=== PATIENT | male | born 1945 | race Caucasian/White ===

== ENCOUNTER 2017-05-23 06:40 | Day surgery (SDC) | payer MEDICARE ==
[~2017-05-23] VITALS: Ht 175.3 cm; Wt 121.6 kg
[2017-05-23 07:23] LABS: HEMATOCRIT 42.2 % (42.0-54.0); HEMOGLOBIN 14.4 g/dL (13.5-17.5); MCH 30.5 pg (26.0-34.0); MCHC 34.1 g/dL (31.0-37.0); MCV 89.4 fL (80.0-100.0); MEAN PLATELET VOLUME 10.7 fL (7.4-10.4); RBC 4.72 10x6/uL (4.20-6.10); RDW 14.8 % (11.5-14.5); WBC 9.5 10x3/uL (4.8-10.8)
[2017-05-23] MEDS ORDERED: ZOCOR40 MG PO (08:32)
[2017-05-23] MEDS ORDERED: TESTOSTERON200 MG/ML IM (08:33)
[2017-05-23] MEDS ORDERED: TERAZOSIN HCL2 MG PO (08:34)
[2017-05-23] MEDS ORDERED: PROZAC40 MG PO (08:34)
[2017-05-23] MEDS ORDERED: LISINOPRIL-HCTZ1 T13 PO (08:34)
[2017-05-23 08:45] VITALS: BP 97/62; Ht 175.3 cm; Wt 121.6 kg
--- NOTE | 2017-05-23 11:30 | NUR ---
RECEIVED PT FROM [facility], NO C/O VOICED.
--- NOTE | 2017-05-23 15:19 | NUR ---
1330--IV DC'D, PT UP TO DRESS. RUBÉN RUIZ 1340--DISCHARGE INSTRUCTIONS GIVEN, PT VERBALIZES UNDERSTANDING. PT OFF UNIT VIA WC. RUBÉN RUIZ
--- NOTE | 2017-05-26 15:54 | OP ---
PATIENT NAME: ANA LAURA MALAVE MEDICAL RECORD: [id number] :[birth year] LOCATION:[facility] ADMISSION DATE: SURGEON: FRANK HERNANDEZ MD DATE OF OPERATION: 05/23/2017 PREOPERATIVE DIAGNOSIS: Right vocal cord lesion and hoarseness. POSTOPERATIVE DIAGNOSIS: Right vocal cord lesion and hoarseness. PROCEDURE: Microsuspension laryngoscopy and biopsy of the right true vocal cord. SURGEON: Frank Hernandez MD ANESTHESIA: General orotracheal. BLOOD LOSS: Less than 1 cc. SPECIMENS: Multiple biopsies from the right true vocal cord. COMPLICATIONS: None. DISPOSITION: Recovery stable. DESCRIPTION OF PROCEDURE: He was brought to the operating room and placed in supine position, sedated and intubated by anesthesia with a 6-1/2 ET tube. Table was turned 90 degrees. A head drape was applied and he was positioned for laryngoscopy. He did not have any upper teeth, but a plastic tooth guard was used to protect the alveolus. Endotracheal tube was removed to the left side of the mouth. A Kleinsasser J laryngoscope was used to examine the hypopharynx, larynx, lateral pharyngeal lund, vallecula, base of tongue, both piriforms, post-cricoid area and the supraglottic larynx. No lesions were identified. He was then brought in to expose the larynx and the right vocal cord lesion was easily visualized and it was exophytic, very pale, white on the medial surface of the entire true vocal cord from the anterior commissure all the way back to the vocal process to the arytenoid upon to the medial arytenoid and in to the false cord posteriorly. Along the mid cord, especially it was a very thick, white and hyperkeratotic in appearance. The laryngoscope was placed for good visualization and the Lewy retractor was attached to suspend them and then the microscope was brought in to get good visualization. Upbiting 2-mm cup forceps were used to start with some biopsies along the length of the cord. There was so much thick, hyperkeratotic material. I want to make sure and get some good biopsies up to the edge of the mucosa to make sure it would show if there was some invasive carcinoma and allow this thickened material stripped off the medial aspect of the mid cord to get that accomplished. There was really no significant bleeding. There was plenty of path specimen. The laryngoscope was let down and removed. The plastic tooth guard was removed. He was awakened, extubated, and transported to recovery in good condition. No complications. TRANSINT:[id number] Voice Confirmation ID: [id number] DOCUMENT ID: [id number] OPERATIVE REPORT [id number] ANA LAURA MALAVE ERIC MD at 1554 CC: [id number] DICTATION DATE: 05/23/17 1336 CUT OFF TENDER GLASS: 05/23/177 [facility] 05/23/17 [id number] [place] [address]
--- NOTE | 2017-05-26 15:54 | HP ---
PATIENT: ANA LAURA MALAVE MEDICAL RECORD: [id number] ACCOUNT: [id number] LOCATION:[facility] : [birth year] ADMISSION DATE: 05/23/17 HISTORY AND PHYSICAL EXAMINATION Preoperative History and Physical HISTORY OF PRESENT ILLNESS: Ana Laura is a 71-year-old male, smoker with hoarseness and a right vocal cord lesion. He is being admitted for laryngoscopy and biopsy of the right vocal cord. PAST MEDICAL HISTORY: Hypertension. PAST SURGICAL HISTORY: None. CURRENT MEDICATIONS: Simvastatin, terazosin, lisinopril, and fluoxetine. ALLERGIES: No known drug allergies. PHYSICAL EXAMINATION: GENERAL: He is healthy-appearing, but has a hoarse voice. FACE: Normal, symmetric, no lesions. EYES: Sclerae and conjunctivae are normal. EARS: Canals and TMs are normal. NOSE: No masses, polyps, or drainage. ORAL CAVITY AND OROPHARYNX: Tongue protrudes to midline. Pharynx is normal. NECK: No masses, no adenopathy. CHEST: Clear. CARDIOVASCULAR: Regular rate and rhythm, no murmur. EXTREMITIES: Normal. Flexible laryngoscopy reveals normal cord mobility, but he has an exophytic lesion involving the entire right cord from the anterior commissure all the way to the vocal process of the arytenoid and up onto the false cord posteriorly as well. IMPRESSION: Hoarseness and right vocal cord lesion. PLAN: Microsuspension laryngoscopy and biopsy of the right true cord lesion. TRANSINT:[id number] Voice Confirmation ID: [id number] DOCUMENT ID: [id number] JAVED VALDEZ MD at 1554 CC: [id number] DICTATION DATE: 05/22/17 1315 MANAGER OF CHANGE: 05/22/17 1339 [facility] 05/23/17 [place] [address]
== END 2017-05-23 13:40 | disposition home or self-care (01) ==
LOC: D.OPS 06:40 → D.PAN 09:00 → D.OPS 09:00 → D.PAN 09:15 → D.OPS 09:20
PROVIDERS: Anesthesiology
DX: J38.3 Other diseases of vocal cords (principal); R49.0 Dysphonia; F17.200 Nicotine dependence, unspecified, uncomplicated; Z01.812 Encounter for preprocedural laboratory examination

== ENCOUNTER → 2017-05-23 06:40 | Day surgery (SDC) | payer MEDICARE ==
[~2017-05-23 06:40] MED LIST: FLOMAX0.4 MG PO; LISINOPRIL-HCTZ1 T13 PO; MIRALAX17 GM PO; PROSCAR5 MG PO; PROZAC40 MG PO; REVATIO20 MG PO; TERAZOSIN HCL2 MG PO; TESTOSTERON200 MG/ML IM; ZOCOR40 MG PO
== END | disposition home or self-care (01) ==
LOC: D.OPS 06:40
DX: J38.3 Other diseases of vocal cords (principal); R49.0 Dysphonia; F17.200 Nicotine dependence, unspecified, uncomplicated; Z01.812 Encounter for preprocedural laboratory examination; R33.9 Retention of urine, unspecified

== ENCOUNTER 2017-05-23 20:01 | Emergency (ER) | payer MEDICARE ==
[2017-05-23 08:45] VITALS: BMI 39.6
[~2017-05-23 20:01] MED LIST changes: -FLOMAX0.4 MG PO; -MIRALAX17 GM PO; -PROSCAR5 MG PO; -REVATIO20 MG PO
[2017-05-23 20:51] LABS: APPEARANCE CLEAR (CLEAR); BILIRUBIN NEGATIVE (NEGATIVE); COLOR YELLOW (YELLOW); GLUCOSE NEGATIVE (NEGATIVE); KETONE NEGATIVE (NEGATIVE); LEUKOCYTE ESTERASE NEGATIVE (NEGATIVE); NITRITE NEGATIVE (NEGATIVE); PROTEIN NEGATIVE (NEGATIVE); UROBILINOGEN NORMAL (NORMAL)
== END 2017-05-23 21:40 | disposition home or self-care (01) ==
LOC: D.ER 20:01
PROVIDERS: Emergency Medicine
DX: R33.9 Retention of urine, unspecified (principal); I10 Essential (primary) hypertension

== ENCOUNTER 2017-05-24 12:39 | Emergency (ER) | payer MEDICARE ==
[2017-05-23 08:45] VITALS: BMI 39.6
== END 2017-05-24 15:30 | disposition home or self-care (01) ==
LOC: D.ER 12:39
DX: N40.0 Benign prostatic hyperplasia without lower urinary tract symptoms (principal); I10 Essential (primary) hypertension; F17.200 Nicotine dependence, unspecified, uncomplicated; N48.89 Other specified disorders of penis; R30.0 Dysuria; R31.9 Hematuria, unspecified

== ENCOUNTER → 2017-07-02 21:09 | Outpatient (CLI) | payer MEDICARE ==
[~2017-07-02 21:09] MED LIST changes: +FLOMAX0.4 MG PO; +MIRALAX17 GM PO; +PROSCAR5 MG PO; +REVATIO20 MG PO
== END | disposition home or self-care (01) ==
LOC: D.LABREF 21:09
DX: R31.9 Hematuria, unspecified (principal)

== ENCOUNTER → 2017-07-08 12:39 | Outpatient (CLI) | payer MEDICARE | END | disposition home or self-care (01) | LOC: D.CT 12:39 | DX: R33.9 Retention of urine, unspecified (principal) ==

== ENCOUNTER 2017-07-28 08:00 | Outpatient (CLI) | payer MEDICARE ==
[~2017-07-28 08:00] MED LIST changes: -FLOMAX0.4 MG PO; -MIRALAX17 GM PO; -PROSCAR5 MG PO; -REVATIO20 MG PO
[2017-07-28] MEDS ORDERED: FLOMAX0.4 MG PO (13:44)
[2017-07-28] MEDS ORDERED: PROSCAR5 MG PO (13:44)
[2017-07-28] MEDS ORDERED: REVATIO20 MG PO (13:46)
[2017-07-28] MEDS ORDERED: MIRALAX17 GM PO (13:46)
[2017-07-28 14:27] LABS: HEMATOCRIT 47.8 % (42.0-54.0); MCH 30.3 pg (26.0-34.0); MCHC 33.5 g/dL (31.0-37.0); MCV 90.5 fL (80.0-100.0); MEAN PLATELET VOLUME 11.4 fL (7.4-10.4); RBC 5.28 10x6/uL (4.20-6.10); WBC 9.4 10x3/uL (4.8-10.8)
[2017-07-28 14:41] LABS: CALC OSMOLALITY 276 mosm/kg (275-300); CALCIUM 10.2 mg/dL (8.5-10.1); CARBON DIOXIDE 29.4 mmol/L (21.0-32.0); CHLORIDE - SERUM 100 mmol/L (98-107); CREATININE - SERUM 0.9 mg/dL (0.6-1.3); GLUCOSE 119 mg/dL (74-106); POTASSIUM - SERUM 3.8 mmol/L (3.5-5.1); SODIUM 138 mmol/L (136-145); UREA NITROGEN 12 mg/dL (7-18); eGFR NON AFRICAN AMERICAN 89 mL/min (90-120)
--- NOTE | 2017-07-28 14:48 | NUR ---
PATRICIA APPT: DR. EUBANKS REVIEWED EKG & EXPLAINED TO PATIENT CARDIAC CLEARANCE NEEDED PRIOR TO PROCEDURE. FRANCISCO AT DR. BRAVO'S OFFICE NOTIFIED. DR. WHITAKER'S OFFICE TO ARRANGE REFERRAL, EKGS FAXED TO OFFICE. PATIENT INFORMED TO NOTIFIY DR. BRAVO'S OFFICE WHEN CLEARANCE OBTAINED, STATES UNDERSTANDING.
== END 2017-07-28 23:59 | disposition home or self-care (01) ==
LOC: D.OPS 08:00 → D.PAN 07-29 07:30 → EDSTATUS 07-29 12:00 → D.PAN 07-29 12:00 → D.OPS 07-29 12:00
PROVIDERS: Anesthesiology
DX: Z53.9 Procedure and treatment not carried out, unspecified reason (principal)

== ENCOUNTER 2018-08-03 05:41 | Inpatient (IN) | payer MEDICARE ==
[~2018-08-03] VITALS: Ht 175.3 cm; Wt 121.8 kg
[2018-08-03] VITALS (16 sets, daily range): BP systolic 120–156; BP diastolic 50–102; BMI 44.4
--- NOTE | ~2018-08-03 | MORECARE ---
CASE MANAGEMENT DISCHARGE SUMMARY PATIENT: ANA LAURA MALAVE UNIT: [id number] ADM DATE: 08/03/18 AGE: 72 : [birth year] SEX: M ROOM/BED: D.2137 AUTHOR: ANGELA GARCIA PHYSICIAN: REFERRING PHYSICIAN: RICARDO LOCO MD DATE OF SERVICE: 08/05/18 Discharge Plan Patient Name: ANA LAURA MALAVE [facility] : 1945 Planned Disposition: Home Anticipated Discharge Date: 08/08/18 Discharge Date: Expected LOS: 5 Initial Reviewer: [email or web address] Initial Review Date: 08/05/2018 Generated: 08/05/18 10:28 am DCPIA - Discharge Planning Initial Assessment Updated by [email or web address]: Ana Landa on 08/05/18 9:24 am * Is the patient Alert and Oriented? Yes * How many steps to enter\exit or inside your home? * PCP DR. WHITAKER * Pharmacy [facility] * Preadmission Environment Home with Family * ADLs Independent * Equipment Bedside Commode Shower Chair Walker Wheelchair * List name and contact numbers for known caregivers / representatives who currently or will assist patient after discharge: RACH (SON) * Verbal permission to speak to the caregivers and representatives has been obtained from the patient. Yes * Community resources currently utilized None * Additional services required to return to the preadmission environment? Yes * Can the patient safely return to the preadmission environment? Yes * Has this patient been hospitalized within the prior 30 days at any hospital? No Last DP export: 08/05/18 8:21 a Patient Name: ANA LAURA MALAVE Page [phone] at 0928 All edits/amendments must be made on the electronic document DICTATION DATE: 08/05/18927 AUDIO VIDEO TECH: DUGLAS 08/05/18927 RPT#: [id number] DC DATE: STATUS: ADM IN [facility] [address] [place] [address] END OF REPORT
--- NOTE | ~2018-08-03 | MORECARE ---
CASE MANAGEMENT DISCHARGE SUMMARY PATIENT: ANA LAURA MALAVE UNIT: [id number] ADM DATE: 08/03/18 AGE: 72 : [birth year] SEX: M ROOM/BED: D.2137 AUTHOR: ANGELA GARCIA PHYSICIAN: REFERRING PHYSICIAN: RICARDO LOCO MD DATE OF SERVICE: 08/05/18 Discharge Plan Patient Name: ANA LAURA MALAVE Facility: [facility]:[place] : 1945 Planned Disposition: Home Anticipated Discharge Date: 08/08/18 Discharge Date: Expected LOS: 5 Initial Reviewer: [email or web address] Initial Review Date: 08/05/2018 Generated: 08/05/18 10:21 am Patient Name: ANA LAURA MALAVE Page [phone] at 0921 All edits/amendments must be made on the electronic document DICTATION DATE: 08/05/18919 [employer] PROJECT MANAGER: DUGLAS 08/05/18919 RPT#: [id number] DC DATE: STATUS: ADM IN [facility] [address] [place] [address] END OF REPORT
--- NOTE | ~2018-08-03 | MORECARE ---
CASE MANAGEMENT DISCHARGE SUMMARY PATIENT: ANA LAURA MALAVE UNIT: [id number] ADM DATE: 08/03/18 AGE: 72 : [birth year] SEX: M ROOM/BED: D.7725 AUTHOR: JOSE,DOC PHYSICIAN: REFERRING PHYSICIAN: RICARDO LOCO MD DATE OF SERVICE: 08/06/18 Discharge Plan Patient Name: ANA LAURA MALAVE Facility: [facility]:[place] : 1945 Planned Disposition: Home Anticipated Discharge Date: 08/07/18 Discharge Date: Expected LOS: 4 Initial Reviewer: [email or web address] Initial Review Date: 08/05/2018 Generated: 08/06/18 5:39 pm Comments DCP- Discharge Planning Updated by [email or web address]: Kike Serrato on 08/06/18 3:[address] Patient Name: ANA LAURA MALAVE Encounter No: [id number] : 1945 Primary Insurance: MEDICARE A & B Anticipated DC Date: 08-07-2018 Planned Disposition: Home DCP follow-up note: CM RECEIVED ORDER FOR OXYGEN TESTING AND NEBULIZER ARRANGEMENT. CM SPOKE TO REPIRATORY THERAPY WHO INFORMED CM THAT PT IS 92% OXYGEN ON ROOM AIR AT REST, 94% OXYGEN ON ROOM AIR DURING EXERTION. CM SPOKE TO DR. VIERA WHO INFORMED CM THAT PT WILL BE DISCHARGED ON DUONEB WITH NEBULIZER. CM SPOKE TO PT IN ROOM, DISCUSSED ORDER ALONG WITH DISCHARGE PLANNING AND NEEDS. CM DISCUSSED AVAILABILITY OF MEDICAL EQUIPMENT, HOME HEALTH AND REHAB SERVICES. PT DENIES NEED OF HOME HEALTH OR REHAB SERVICES, REPORTS NEEDING NEBULIZER. PT WOULD LIKE MAIL ORDER FOR MEDICATIONS IF POSSIBLE IF IT WILL SAVE MONEY. PT UNDERSTANDS HE WILL NEED AT LEAST THREE DAYS SUPPLY OF DUONEB FROM PHARMACY TO ALLOW TIME FOR MAIL ORDER DELIVERY. PT DOES HAVE STAND ALONE [facility] PRESCR[facility] DRUG COVERAGE POLICY IF NEEDED. PT HAS MEDICARE A AND B. PT HAS NO PREFERNECE ON PROVIDER, REPORTS HE WILL DISCHARGE HOME. IMPORTANT MESSAGE FROM MEDICARE PROVIDED AND EXPLAINED. CM CALLED [facility], , SPOKE TO ELINA AND PROVIDED REFERRAL FOR NEBULIZER AND ASKED FOR HOME DELIVERY OF DUONEB. CM FAXED REFERRAL TO [facility] AT [phone]. [facility] TO [facility]RANGE HOSPITAL DELIVERY OF NEBULIZER AT HOSPITAL ROOM 08-07-18 AND WILL MAIL ORDER DUONEB FOR HOME DELIVERY. PT WILL NEED TO PRESCRIPTION FOR AT LEAST THREE DAYS OF DUONEB CALLED IN TO HIS PHARMACY TO ALLOW TIME FOR MAIL ORDER DUONEB TO ARRIVE AT HIS HOME. CM TO CONTINUE TO FOLLOW AND ASSIST NEEDED. Kike Serrato, CASE MANAGEMENT DCP- Discharge Planning Updated by [id number]: Ana Landa on 08/05/18 8:[address] Patient Name: ANA LAURA MALAVE Admission Status: ER Accout number: [id number] Admission Date: 08-03-2018 : 1945 Admission Diagnosis: Attending: RICARDO LOCO Current LOS: 2 Anticipated DC Date: 08-08-2018 Planned Disposition: Home Primary Insurance: MEDICARE A & B Discharge Planning Comments: CM MET WITH PATIENT REGARDING D/C NEEDS AND PLANS. PATIENT STATED HE HAS STEPS TO ENTER HOME AND NO STAIRS INSIDE. PATIENTS SON (RACH) WILL DRIVE HIM HOME AT DISCHARGE. PATIENT STATED HE IS INDEPENDENT WITH HIS CARE AND HAS A WALKER, WHEELCHAIR, BS COMMODE, AND SHOWER CHAIR AT HOME. PATIENT STATED HIS PCP IS DR. ROMO AND USES [facility]. PATIENT WAS CARING FOR HIS AT HOME (SHE IS ON HOSPICE) BUT WHEN HE BECAME SICK SHE [facility]ENT [facility] WHILE HE IS HERE. PATIENT REFUSED HOME HEALTH AND STATED IF HE DECIDES HE NEEDS IT HE WILL NOTIFY HIS DOCTOR. CM WILL CONTINUE TO FOLLOW PATIENT WITH D/C NEEDS AND PLANS. PCP DR. ROMO [facility] RACH (SON) Cloth Shearing Supervisor: Ana Landa DCPIA - Discharge Planning Initial Assessment Updated by [email or web address]: Ana Landa on 08/05/18 9:24 am * Is the patient Alert and Oriented? Yes * How many steps to enter\exit or inside your home? * PCP DR. WHITAKER * Pharmacy [facility] * Preadmission Environment Home with Family * ADLs Independent * Equipment Bedside Commode Shower Chair Walker Wheelchair * List name and contact numbers for known caregivers / representatives who currently or will assist patient after discharge: RACH (SON) * Verbal permission to speak to the caregivers and representatives has been obtained from the patient. Yes * Community resources currently utilized None * Additional services required to return to the preadmission environment? Yes * Can the patient safely return to the preadmission environment? Yes * Has this patient been hospitalized within the prior 30 days at any hospital? No Coverage Notice Reviewer: [email or web address] Marcio Serrato Notice Issued Date-Time: 08/06/2018 15:55 Notice Type: IM Discharge Notice Notice Delivered To: Patient Relationship to Patient: Public Health Sanitarian Name: Delivery Method: HAND - Hand Delivered [place] Days: Prior Verbal Notification: Recipient Understood Notice: Yes Recipient Signature: Yes Med Rec Note Co-signed by Attending: Coverage Notice Comment: Last DP export: 08/06/18 3:21 p Patient Name: ANA LAURA MALAVE Page [phone] at 1639 All edits/amendments must be made on the electronic document DICTATION DATE: 08/06/181638 HOSPITALITY WORKERS: DUGLAS 08/06/18 1639 RPT#: [id number] DC DATE: STATUS: ADM IN [facility] [address] [place] [address] END OF REPORT
--- NOTE | ~2018-08-03 | EC ---
PATIENT:ANA LAURA MALAVE DATE OF SERVICE: 08/03/18 SEX: M MEDICAL RECORD: [id number] DATE OF : [birth year] LOCATION:D.M2 D.213 AGE OF PATIENT: 72 ADMISSION DATE: 08/03/18 REFERRING PHYSICIAN: INTERPRETING PHYSICIAN: ANGEL BENITEZ MD ECHOCARDIOGRAM REPORT ECHO CHARGES 4 ECHO COMPLETE Date: 08/03/18 CLINICAL DIAGNOSIS: CHF ECHOCARDIOGRAPHIC MEASUREMENTS (adult normal given) AC root (d.<3.7cm) 4.2 cm LV Septum d (<1.2 cm> 1.5 cm Valve Excursion 1.3 cm LV Septum (systole) 2.0 cm Left Atria (s.<4.0cm> 4.6 cm LVPW d(<1.2cm) 1.5 cm RV (d.<2.3cm) 2.6 cm LVPW (sytole) 2.0 cm LV diastole(<5.6CM) 7.5 cm MV E-F(>70mm/sec) cm LV systole 5.8 cm LVOT Diameter 2.2 cm MV exc.(>10mm) cm Est.ejection fraction (50-75%) % DOPPLER: LVIT cm/sec A 166 cm/sec E 100 cm/sec LA cm/sec RVSP 24.0 mmHg LVOT 125 cm/sec AOP1/2T m/s Asc. Ao 187 cm/sec RVOT 64.0 cm/sec RA cm/sec PA 56.0 cm/sec AV Gradient Peak 14.0 mmHg AV Mean 6.5 mmHg AV Area 2.8 cm MV Gradient Peak 13.4 mmHg MV Mean 4.9 mmHg MV Area cm COMMENTS: Western F[employer] Hat Blocker: Bong BHATT Child Development Specialist: 1 Dr. Benitez TAPE# PACS Pericardial Effusion N DATE OF SERVICE: 08/03/2018 FINDINGS: 1. Left ventricular chamber size is mildly dilated. Left ventricular systolic function is preserved at 55%. 2. Left atrium is enlarged at 4.6 cm. Right atrium and right ventricle chamber sizes are as well xknw-ao-wvazylxzes dilated. 3. Valvular structures have normal structure and motion. 4. Doppler interrogation reveals no significant valvular insufficiency or stenosis. Pulmonary systolic pressure is normal, estimated at 24 mmHg. ECHOCARDIOGRAM REPORT [id number] ANA LAURA MALAVE 5. No evidence of pericardial effusion or left ventricular thrombus. TRANSINT:[id number] Voice Confirmation ID: [id number] DOCUMENT ID: [id number] ANGEL BENITEZ MD at 1059 CC: [id number] DICTATION DATE: 08/03/18 1255 IT TEACHER: 08/03/18 1524 ADM IN [facility] [address] [place] [address]
--- NOTE | ~2018-08-03 | MORECARE ---
CASE MANAGEMENT DISCHARGE SUMMARY PATIENT: ANA LAURA MALAVE UNIT: [id number] ADM DATE: 08/03/18 AGE: 72 : [birth year] SEX: M ROOM/BED: D.2132 AUTHOR: ANGELA GARCIA PHYSICIAN: REFERRING PHYSICIAN: RICARDO LOCO MD DATE OF SERVICE: 08/05/18 Discharge Plan Patient Name: ANA LAURA MALAVE Facility: [facility]:[place] : 1945 Planned Disposition: Home Anticipated Discharge Date: 08/08/18 Discharge Date: Expected LOS: 5 Initial Reviewer: [email or web address] Initial Review Date: 08/05/2018 Generated: 08/05/18 10:35 am Comments DCP- Discharge Planning Updated by [id number]: Ana Landa on 08/05/18 8:[address] Patient Name: ANA LAURA MALAVE Admission Status: ER Accout number: [id number] Admission Date: 08-03-2018 : 1945 Admission Diagnosis: Attending: RICARDO LOCO Current LOS: 2 Anticipated DC Date: 08-08-2018 Planned Disposition: Home Primary Insurance: MEDICARE A & B Discharge Planning Comments: CM MET WITH PATIENT REGARDING D/C NEEDS AND PLANS. PATIENT STATED HE HAS STEPS TO ENTER HOME AND NO STAIRS INSIDE. PATIENTS SON (RACH) WILL DRIVE HIM HOME AT DISCHARGE. PATIENT STATED HE IS INDEPENDENT WITH HIS CARE AND HAS A WALKER, WHEELCHAIR, BS COMMODE, AND SHOWER CHAIR AT HOME. PATIENT STATED HIS PCP IS DR. ROMO AND USES [facility]. PATIENT WAS CARING FOR HIS AT HOME (SHE IS ON HOSPICE) BUT WHEN HE BECAME SICK [facility] WHILE HE IS HERE. PATIENT REFUSED HOME HEALTH AND STATED IF HE DECIDES HE NEEDS IT HE WILL NOTIFY HIS DOCTOR. CM WILL CONTINUE TO FOLLOW PATIENT WITH D/C NEEDS AND PLANS. PCP DR. ROMO [facility] RACH (SON) Cook'S Assistant: Ana Landa DCPIA - Discharge Planning Initial Assessment Updated by [email or web address]: Ana Landa on 08/05/18 9:24 am * Is the patient Alert and Oriented? Yes * How many steps to enter\exit or inside your home? * PCP DR. WHITAKER * [facility]acy [facility] * Preadmission Environment Home with Family * ADLs Independent * Equipment Bedside Commode Shower Chair Walker Wheelchair * List name and contact numbers for known caregivers / representatives who currently or will assist patient after discharge: RACH (SON) * Verbal permission to speak to the caregivers and representatives has been obtained from the patient. Yes * Community resources currently utilized None * Additional services required to return to the preadmission environment? Yes * Can the patient safely return to the preadmission environment? Yes * Has this patient been hospitalized within the prior 30 days at any hospital? No Last DP export: 08/05/18 8:28 a Patient Name: ANA LAURA MALAVE Page [phone] at 0935 All edits/amendments must be made on the electronic document DICTATION DATE: 08/05/18934 GRADUATE FELLOW: DUGLAS 08/05/18934 RPT#: [id number] DC DATE: STATUS: ADM IN [facility] [address] [place] [address] END OF REPORT
--- NOTE | ~2018-08-03 | MORECARE ---
CASE MANAGEMENT DISCHARGE SUMMARY PATIENT: AN ALAURA MALAVE UNIT: [id number] ADM DATE: 08/03/18 AGE: 72 : [birth year] SEX: M ROOM/BED: D.3668 AUTHOR: JOSE,DOC PHYSICIAN: REFERRING PHYSICIAN: RICARDO LOCO MD DATE OF SERVICE: 08/07/18 Discharge Plan Patient Name: ANA LAURA MALAVE Facility: [facility]:[place] : 1945 Planned Disposition: Home Anticipated Discharge Date: 08/07/18 Discharge Date: Expected LOS: 4 Initial Reviewer: [email or web address] Initial Review Date: 08/05/2018 Generated: 08/07/18 1:19 pm Comments DCP- Discharge Planning Updated by [email or web address]: Kike Serrato on 08/06/18 3:[address] Patient Name: ANA LAUAR MALAVE Encounter No: [id number] : 1945 Primary Insurance: MEDICARE A & B Anticipated DC Date: 08-07-2018 Planned Disposition: Home DCP follow-up note: CM RECEIVED ORDER FOR OXYGEN TESTING AND NEBULIZER ARRANGEMENT. CM SPOKE TO REPIRATORY THERAPY WHO INFORMED CM THAT PT IS 92% OXYGEN ON ROOM AIR AT REST, 94% OXYGEN ON ROOM AIR DURING EXERTION. CM SPOKE TO DR. VIERA WHO INFORMED CM THAT PT WILL BE DISCHARGED ON DUONEB WITH NEBULIZER. CM SPOKE TO PT IN ROOM, DISCUSSED ORDER ALONG WITH DISCHARGE PLANNING AND NEEDS. CM DISCUSSED AVAILABILITY OF MEDICAL EQUIPMENT, HOME HEALTH AND REHAB SERVICES. PT DENIES NEED OF HOME HEALTH OR REHAB SERVICES, REPORTS NEEDING NEBULIZER. PT WOULD LIKE MAIL ORDER FOR MEDICATIONS IF POSSIBLE IF IT WILL SAVE MONEY. PT UNDERSTANDS HE WILL NEED AT LEAST THREE DAYS SUPPLY OF DUONEB FROM PHARMACY TO ALLOW TIME FOR MAIL ORDER DELIVERY. PT DOES HAVE STAND ALONE [facility] PRESCRITION DRUG COVERAGE POLICY IF NEEDED. PT HAS MEDICARE A AND B. PT HAS NO PREFERNECE ON PROVIDER, REPORTS HE WILL DISCHARGE HOME. IMPORTANT MESSAGE FROM MEDICARE PROVIDED AND EXPLAINED. CM CALLED [facility], , SPOKE TO ELINA AND PROVIDED REFERRAL FOR NEBULIZER AND ASKED FOR HOME DELIVERY OF DUONEB. CM FAXED REFERRAL TO [facility] AT [phone]. [facility] TO [facility]RANGE HOSPITAL DELIVERY OF NEBULIZER AT HOSPITAL ROOM 08-07-18 AND WILL MAIL ORDER DUONEB FOR HOME DELIVERY. PT WILL NEED TO PRESCRIPTION FOR AT LEAST THREE DAYS OF DUONEB CALLED IN TO HIS PHARMACY TO ALLOW TIME FOR MAIL ORDER DUONEB TO ARRIVE AT HIS HOME. CM TO CONTINUE TO FOLLOW AND ASSIST NEEDED. Kike Serrato, CASE MANAGEMENT DCP- Discharge Planning Updated by [email or web address]: Ana Landa on 08/05/18 8:[address] Patient Name: ANA LAURA MALAVE Admission Status: ER Accout number: [id number] Admission Date: 08-03-2018 : 1945 Admission Diagnosis: Attending: RICARDO LOCO Current LOS: 2 Anticipated DC Date: 08-08-2018 Planned Disposition: Home Primary Insurance: MEDICARE A & B Discharge Planning Comments: CM MET WITH PATIENT REGARDING D/C NEEDS AND PLANS. PATIENT STATED HE HAS STEPS TO ENTER HOME AND NO STAIRS INSIDE. PATIENTS SON (RACH) WILL DRIVE HIM HOME AT DISCHARGE. PATIENT STATED HE IS INDEPENDENT WITH HIS CARE AND HAS A WALKER, WHEELCHAIR, BS COMMODE, AND SHOWER CHAIR AT HOME. PATIENT STATED HIS PCP IS DR. ROMO AND USES [facility]. PATIENT WAS CARING FOR HIS AT HOME (SHE IS ON HOSPICE) BUT WHEN HE BECAME SICK [facility] WHILE HE IS HERE. PATIENT REFUSED HOME HEALTH AND STATED IF HE DECIDES HE NEEDS IT HE WILL NOTIFY HIS DOCTOR. CM WILL CONTINUE TO FOLLOW PATIENT WITH D/C NEEDS AND PLANS. PCP DR. ROMO [facility] RACH (SON) Cylinder Press Feeder: Ana Landa DCPIA - Discharge Planning Initial Assessment Updated by [email or web address]: Ana Landa on 08/05/18 9:24 am * Is the patient Alert and Oriented? Yes * How many steps to enter\exit or inside your home? * PCP DR. WHITAKER * Pharmacy [facility] * Preadmission Environment Home with Family * ADLs Independent * Equipment Bedside Commode Shower Chair Walker Wheelchair * List name and contact numbers for known caregivers / representatives who currently or will assist patient after discharge: RACH (SON) * Verbal permission to speak to the caregivers and representatives has been obtained from the patient. Yes * Community resources currently utilized None * Additional services required to return to the preadmission environment? Yes * Can the patient safely return to the preadmission environment? Yes * Has this patient been hospitalized within the prior 30 days at any hospital? No Coverage Notice Reviewer: [email or web address] Marcio Serrato Notice Issued Date-Time: 08/06/2018 15:55 Notice Type: IM Discharge Notice Notice Delivered To: Patient Relationship to Patient: Store Mgr Name: Delivery Method: HAND - Hand Delivered [place] Days: Prior Verbal Notification: Recipient Understood Notice: Yes Recipient Signature: Yes Med Rec Note Co-signed by Attending: Coverage Notice Comment: Last DP export: 08/07/18 11:11 a Patient Name: ANA LAURA MALAVE Page [phone] at 1219 All edits/amendments must be made on the electronic document DICTATION DATE: 08/07/181218 ASSISTANT CHIEF TRAIN DISPATCHER: DUGLAS 08/07/18 1219 RPT#: [id number] DC DATE: STATUS: ADM IN [facility] [address] [place] [address] END OF REPORT
--- NOTE | ~2018-08-03 | MORECARE ---
CASE MANAGEMENT DISCHARGE SUMMARY PATIENT: ANA LAURA MALAVE UNIT: [id number] ADM DATE: 08/03/18 AGE: 72 : [birth year] SEX: M ROOM/BED: D.2133 AUTHOR: ANGELA GARCIA PHYSICIAN: REFERRING PHYSICIAN: RICARDO LOCO MD DATE OF SERVICE: 08/06/18 Discharge Plan Patient Name: ANA LAURA MALAVE Facility: [facility]:[place] : 1945 Planned Disposition: Home Anticipated Discharge Date: 08/07/18 Discharge Date: Expected LOS: 4 Initial Reviewer: [id number] Initial Review Date: 08/05/2018 Generated: 08/06/18 5:21 pm Comments DCP- Discharge Planning Updated by [email or web address]: Ana Landa on 08/05/18 8:[address] Patient Name: ANA LAURA MALAVE Admission Status: ER Accout number: [id number] Admission Date: 08-03-2018 : 1945 Admission Diagnosis: Attending: RICARDO LOCO Current LOS: 2 Anticipated DC Date: 08-08-2018 Planned Disposition: Home Primary Insurance: MEDICARE A & B Discharge Planning Comments: CM MET WITH PATIENT REGARDING D/C NEEDS AND PLANS. PATIENT STATED HE HAS STEPS TO ENTER HOME AND NO STAIRS INSIDE. PATIENTS SON (RACH) WILL DRIVE HIM HOME AT DISCHARGE. PATIENT STATED HE IS INDEPENDENT WITH HIS CARE AND HAS A WALKER, WHEELCHAIR, BS COMMODE, AND SHOWER CHAIR AT HOME. PATIENT STATED HIS PCP IS DR. ROMO AND USES [facility]. PATIENT WAS CARING FOR HIS AT HOME (SHE IS ON HOSPICE) BUT WHEN HE BECAME SICK SHE WENT TO THE [facility] WHILE HE IS HERE. PATIENT REFUSED HOME HEALTH AND STATED IF HE DECIDES HE NEEDS IT HE WILL NOTIFY HIS DOCTOR. CM WILL CONTINUE TO FOLLOW PATIENT WITH D/C NEEDS AND PLANS. PCP DR. ROMO [facility] RACH (SON) Meeting/Event Planner: Ana Landa DCPIA - Discharge Planning Initial Assessment Updated by [id number]: Ana Landa on 08/05/18 9:24 am * Is the patient Alert and Oriented? Yes * How many steps to enter\exit or inside your home? * PCP DR. WHITAKER * [facility] * Preadmission Environment Home with Family * ADLs Independent * Equipment Bedside Commode Shower Chair Walker Wheelchair * List name and contact numbers for known caregivers / representatives who currently or will assist patient after discharge: RACH (SON) * Verbal permission to speak to the caregivers and representatives has been obtained from the patient. Yes * Community resources currently utilized None * Additional services required to return to the preadmission environment? Yes * Can the patient safely return to the preadmission environment? Yes * Has this patient been hospitalized within the prior 30 days at any hospital? No External Providers [facility] Next Contact Date: 08/07/2018 Service Request Date: Service Type: Resolution: Reviewer: Comments: Coverage Notice Reviewer: [email or web address] Marcio Serrato Notice Issued Date-Time: 08/06/2018 15:55 Notice Type: IM Discharge Notice Notice Delivered To: Patient Relationship to Patient: Funnel Coater Name: Delivery Method: HAND - Hand Delivered Africa Days: Prior Verbal Notification: Recipient Understood Notice: Yes Recipient Signature: Yes Med Rec Note Co-signed by Attending: Coverage Notice Comment: Last DP export: 08/05/18 8:35 a Patient Name: ANA LAURA MALAVE Page [phone] at 1621 All edits/amendments must be made on the electronic document DICTATION DATE: 08/06/181620 SERVICES TECH: DUGLAS 08/06/181620 RPT#: [id number] DC DATE: STATUS: ADM IN [facility] [address] [place] [address] END OF REPORT
--- NOTE | ~2018-08-03 | MORECARE ---
CASE MANAGEMENT DISCHARGE SUMMARY PATIENT: ANA LAURA MALAVE UNIT: [id number] ADM DATE: 08/03/18 AGE: 72 : [birth year] SEX: M ROOM/BED: D.6146 AUTHOR: JOSE,DOC PHYSICIAN: REFERRING PHYSICIAN: RICARDO LOCO MD DATE OF SERVICE: 08/07/18 Discharge Plan Patient Name: ANA LAURA MALAVE Facility: [facility]:[place] : 1945 Planned Disposition: Home Anticipated Discharge Date: 08/07/18 Discharge Date: Expected LOS: 4 Initial Reviewer: [id number] Initial Review Date: 08/05/2018 Generated: 08/07/18 1:11 pm Comments DCP- Discharge Planning Updated by [email or web address]: Kike Serrato on 08/06/18 3:[address] Patient Name: ANA LAURA MALAVE Encounter No: [id number] : 1945 Primary Insurance: MEDICARE A & B Anticipated DC Date: 08-07-2018 Planned Disposition: Home DCP follow-up note: CM RECEIVED ORDER FOR OXYGEN TESTING AND NEBULIZER ARRANGEMENT. CM SPOKE TO REPIRATORY THERAPY WHO INFORMED CM THAT PT IS 92% OXYGEN ON ROOM AIR AT REST, 94% OXYGEN ON ROOM AIR DURING EXERTION. CM SPOKE TO DR. VIERA WHO INFORMED CM THAT PT WILL BE DISCHARGED ON DUONEB WITH NEBULIZER. CM SPOKE TO PT IN ROOM, DISCUSSED ORDER ALONG WITH DISCHARGE PLANNING AND NEEDS. CM DISCUSSED AVAILABILITY OF MEDICAL EQUIPMENT, HOME HEALTH AND REHAB SERVICES. PT DENIES NEED OF HOME HEALTH OR REHAB SERVICES, REPORTS NEEDING NEBULIZER. PT WOULD LIKE MAIL ORDER FOR MEDICATIONS IF POSSIBLE IF IT WILL SAVE MONEY. PT UNDERSTANDS HE WILL NEED AT LEAST THREE DAYS SUPPLY OF DUONEB FROM PHARMACY TO ALLOW TIME FOR MAIL ORDER DELIVERY. PT DOES HAVE STAND ALONE [facility] PRESCRITION DRUG COVERAGE POLICY IF NEEDED. PT HAS MEDICARE A AND B. PT HAS NO PREFERNECE ON PROVIDER, REPORTS HE WILL DISCHARGE HOME. IMPORTANT MESSAGE FROM MEDICARE PROVIDED AND EXPLAINED. CM CALLED [facility], , SPOKE TO ELINA AND PROVIDED REFERRAL FOR NEBULIZER AND ASKED FOR HOME DELIVERY OF DUONEB. CM FAXED REFERRAL TO [facility] AT [phone]. [facility] TO [facility]ANGE HOSPITAL DELIVERY OF NEBULIZER AT HOSPITAL ROOM 08-07-18 AND WILL MAIL ORDER DUONEB FOR HOME DELIVERY. PT WILL NEED TO PRESCRIPTION FOR AT LEAST THREE DAYS OF DUONEB CALLED IN TO HIS PHARMACY TO ALLOW TIME FOR MAIL ORDER DUONEB TO ARRIVE AT HIS HOME. CM TO CONTINUE TO FOLLOW AND ASSIST NEEDED. Kike Serrato, CASE MANAGEMENT DCP- Discharge Planning Updated by [id number]: Ana Landa on 08/05/18 8:[address] Patient Name: ANA LAURA MALAVE Admission Status: ER Accout number: [id number] Admission Date: 08-03-2018 : 1945 Admission Diagnosis: Attending: RICARDO LOCO Current LOS: 2 Anticipated DC Date: 08-08-2018 Planned Disposition: Home Primary Insurance: MEDICARE A & B Discharge Planning Comments: CM MET WITH PATIENT REGARDING D/C NEEDS AND PLANS. PATIENT STATED HE HAS STEPS TO ENTER HOME AND NO STAIRS INSIDE. PATIENTS SON (RACH) WILL DRIVE HIM HOME AT DISCHARGE. PATIENT STATED HE IS INDEPENDENT WITH HIS CARE AND HAS A WALKER, WHEELCHAIR, BS COMMODE, AND SHOWER CHAIR AT HOME. PATIENT STATED HIS PCP IS DR. ROMO AND USES [facility]. PATIENT WAS CARING FOR HIS AT HOME (SHE IS ON HOSPICE) BUT WHEN HE BECAME SICK SHE WENT TO THE [facility] WHILE HE IS HERE. PATIENT REFUSED HOME HEALTH AND STATED IF HE DECIDES HE NEEDS IT HE WILL NOTIFY HIS DOCTOR. CM WILL CONTINUE TO FOLLOW PATIENT WITH D/C NEEDS AND PLANS. PCP DR. ROMO [facility] RACH (SON) Licensed Clinical Social Worker: Ana Landa DCPIA - Discharge Planning Initial Assessment Updated by [email or web address]: Ana Landa on 08/05/18 9:24 am * Is the patient Alert and Oriented? Yes * How many steps to enter\exit or inside your home? * PCP DR. WHITAKER * Pharmacy [facility] * Preadmission Environment Home with Family * ADLs Independent * Equipment Bedside Commode Shower Chair Walker Wheelchair * List name and contact numbers for known caregivers / representatives who currently or will assist patient after discharge: RACH (SON) * Verbal permission to speak to the caregivers and representatives has been obtained from the patient. Yes * Community resources currently utilized None * Additional services required to return to the preadmission environment? Yes * Can the patient safely return to the preadmission environment? Yes * Has this patient been hospitalized within the prior 30 days at any hospital? No Coverage Notice Reviewer: [id number] Marcio Serrato Notice Issued Date-Time: 08/06/2018 15:55 Notice Type: IM Discharge Notice Notice Delivered To: Patient Relationship to Patient: Tower Switch Operator Name: Delivery Method: HAND - Hand Delivered Africa Days: Prior Verbal Notification: Recipient Understood Notice: Yes Recipient Signature: Yes Med Rec Note Co-signed by Attending: Coverage Notice Comment: Last DP export: 08/06/18 3:39 p Patient Name: ANA LAURA MALAVE Page 43248 at 1211 All edits/amendments must be made on the electronic document DICTATION DATE: 08/07/18 121 MATERIAL CARRIER: DUGLAS 08/07/18 1211 RPT#: [id number] DC DATE: STATUS: ADM IN [facility] [address] [place] [address] END OF REPORT
[~2018-08-03 05:41] MED LIST changes: +FLOMAX0.4 MG PO; +MIRALAX17 GM PO; +PROSCAR5 MG PO; +REVATIO20 MG PO
[2018-08-03 07:14] LABS: BASOPHILS 0.1 % (0-2); EOSINOPHILS 0.2 % (0-7); HEMOGLOBIN 13.1 g/dL (13.5-17.5); IMMATURE GRANULOCYTES 0.3 % (0-5); LYMPHOCYTES 10.7 % (15-50); MCH 30.3 pg (26.0-34.0); MCHC 34.5 g/dL (31.0-37.0); MCV 87.8 fL (80.0-100.0); MEAN PLATELET VOLUME 10.5 fL (7.4-10.4); MONOCYTES 6.1 % (2-11); NEUTROPHILS 82.6 % (40-80); RBC 4.33 10x6/uL (4.20-6.10); RDW 12.7 % (11.5-14.5); WBC 14.3 10x3/uL (4.8-10.8)
[2018-08-03 07:15] LABS: PLATELET COUNT 268 10x3/uL (130-400)
[2018-08-03 07:25] LABS: ALBUMIN 3.6 g/dL (3.4-5.0); ALKALINE PHOSPHATASE 66 U/L (46-116); ALT (SGPT) 65 U/L (10-68); BILIRUBIN - TOTAL 0.55 mg/dL (0.2-1.3); CALC OSMOLALITY 251 mosm/kg (275-300); CALCIUM 8.6 mg/dL (8.5-10.1); CHLORIDE - SERUM 87 mmol/L (98-107); CREATININE - SERUM 0.9 mg/dL (0.6-1.3); GLUCOSE 149 mg/dL (74-106); POTASSIUM - SERUM 3.9 mmol/L (3.5-5.1); PROTEIN - SERUM 7.1 g/dL (6.4-8.2); SODIUM 123 mmol/L (136-145); UREA NITROGEN 14 mg/dL (7-18); eGFR NON AFRICAN AMERICAN 89 mL/min (90-120)
[2018-08-03 07:36] LABS: MAGNESIUM - SERUM 1.2 mg/dL (1.8-2.4); PRO BNP 247 pg/mL (0-125); TROPONIN-I < 0.017 ng/mL (0.000-0.060)
[2018-08-03 11:27] LABS: % SATURATION 16 % (15-55); IRON 52 ug/dl (35-150); TOTAL IRON BIND CAPACITY 310 ug/dl (260-445); UNSAT IRON BIND CAPACITY 258 ug/dl (150-375)
[2018-08-03 11:38] LABS: CKMB 51.3 U/L (0.0-3.6)
[2018-08-03 11:42] LABS: CREATINE KINASE 957 UL (21-232); TROPONIN-I < 0.017 ng/mL (0.000-0.060)
[2018-08-03 17:25] LABS: CKMB 62.9 U/L (0.0-3.6)
[2018-08-03 17:30] LABS: CREATINE KINASE 1325 UL (21-232); TROPONIN-I < 0.017 ng/mL (0.000-0.060)
[2018-08-03 23:20] LABS: CKMB 61.4 U/L (0.0-3.6)
[2018-08-03 23:23] LABS: CREATINE KINASE 1520 UL (21-232); TROPONIN-I < 0.017 ng/mL (0.000-0.060)
[2018-08-04] VITALS (19 sets, daily range): BP systolic 120–177; BP diastolic 55–88; Ht 175.3 cm; Wt 121.8 kg
[2018-08-04 04:56] LABS: BASOPHILS 0 % (0-2); EOSINOPHILS 0.1 % (0-7); HEMATOCRIT 35.3 % (42.0-54.0); HEMOGLOBIN 12.4 g/dL (13.5-17.5); IMMATURE GRANULOCYTES 0.3 % (0-5); LYMPHOCYTES 7.4 % (15-50); MCH 31.2 pg (26.0-34.0); MCHC 35.1 g/dL (31.0-37.0); MCV 88.9 fL (80.0-100.0); MEAN PLATELET VOLUME 10.6 fL (7.4-10.4); MONOCYTES 2.5 % (2-11); NEUTROPHILS 89.7 % (40-80); PLATELET COUNT 261 10x3/uL (130-400); RBC 3.97 10x6/uL (4.20-6.10); RDW 13.1 % (11.5-14.5); WBC 15.4 10x3/uL (4.8-10.8)
[2018-08-04 05:33] LABS: ALBUMIN 3.6 g/dL (3.4-5.0); ALKALINE PHOSPHATASE 59 U/L (46-116); ALT (SGPT) 65 U/L (10-68); BILIRUBIN - TOTAL 0.35 mg/dL (0.2-1.3); CALC OSMOLALITY 265 mosm/kg (275-300); CALCIUM 8.9 mg/dL (8.5-10.1); CARBON DIOXIDE 27.8 mmol/L (21.0-32.0); CHLORIDE - SERUM 93 mmol/L (98-107); CREATININE - SERUM 0.7 mg/dL (0.6-1.3); GLUCOSE 193 mg/dL (74-106); POTASSIUM - SERUM 3.9 mmol/L (3.5-5.1); PROTEIN - SERUM 7.1 g/dL (6.4-8.2); SODIUM 130 mmol/L (136-145); UREA NITROGEN 12 mg/dL (7-18); eGFR NON AFRICAN AMERICAN > 90 mL/min (90-120)
[2018-08-04 08:18] LABS: FOLATE (FOLIC ACID) - SERUM 4.7 ng/mL (>3.0)
[2018-08-05 00:30] VITALS: BP 150/87
[2018-08-05 05:26] LABS: BASOPHILS 0 % (0-2); EOSINOPHILS 0 % (0-7); HEMATOCRIT 35.3 % (42.0-54.0); HEMOGLOBIN 12.1 g/dL (13.5-17.5); IMMATURE GRANULOCYTES 0.3 % (0-5); LYMPHOCYTES 6.3 % (15-50); MCH 30.6 pg (26.0-34.0); MCHC 34.3 g/dL (31.0-37.0); MCV 89.4 fL (80.0-100.0); MEAN PLATELET VOLUME 10.5 fL (7.4-10.4); NEUTROPHILS 86.4 % (40-80); PLATELET COUNT 252 10x3/uL (130-400); RBC 3.95 10x6/uL (4.20-6.10); RDW 13.2 % (11.5-14.5)
[2018-08-05 05:33] VITALS: BP 145/78
[2018-08-05 05:44] LABS: WBC 19.5 10x3/uL (4.8-10.8)
[2018-08-05 05:52] LABS: CALC OSMOLALITY 266 mosm/kg (275-300); CALCIUM 9.1 mg/dL (8.5-10.1); CARBON DIOXIDE 28.2 mmol/L (21.0-32.0); CHLORIDE - SERUM 94 mmol/L (98-107); CREATININE - SERUM 0.8 mg/dL (0.6-1.3); GLUCOSE 171 mg/dL (74-106); POTASSIUM - SERUM 4.3 mmol/L (3.5-5.1); SODIUM 130 mmol/L (136-145); eGFR NON AFRICAN AMERICAN > 90 mL/min (90-120)
[2018-08-05 05:53] LABS: UREA NITROGEN 19 mg/dL (7-18)
[2018-08-05 08:12] VITALS: BP 151/79
[2018-08-05 11:22] VITALS: BP 151/87
[2018-08-05 15:41] VITALS: BP 142/78
[2018-08-05 21:31] VITALS: BP 188/77
[2018-08-06 00:49] VITALS: BP 177/83
[2018-08-06 05:58] VITALS: BP 146/72
[2018-08-06 08:54] VITALS: BP 156/77
[2018-08-06 10:50] VITALS: BP 123/72
[2018-08-06 14:14] VITALS: BP 171/73
[2018-08-06 19:00] VITALS: BP 179/80
[2018-08-07 02:11] VITALS: BP 186/99
[2018-08-07 04:00] VITALS: BP 179/79
[2018-08-07 06:18] LABS: CALC OSMOLALITY 270 mosm/kg (275-300); CALCIUM 8.8 mg/dL (8.5-10.1); CARBON DIOXIDE 30.1 mmol/L (21.0-32.0); CHLORIDE - SERUM 97 mmol/L (98-107); CREATININE - SERUM 0.8 mg/dL (0.6-1.3); POTASSIUM - SERUM 3.6 mmol/L (3.5-5.1); SODIUM 134 mmol/L (136-145); UREA NITROGEN 17 mg/dL (7-18); eGFR NON AFRICAN AMERICAN > 90 mL/min (90-120)
[2018-08-07 06:25] LABS: GLUCOSE 119 mg/dL (74-106)
[2018-08-07 06:35] LABS: BASOPHILS 0.1 % (0-2); EOSINOPHILS 0.8 % (0-7); HEMATOCRIT 36.4 % (42.0-54.0); HEMOGLOBIN 12.3 g/dL (13.5-17.5); IMMATURE GRANULOCYTES 0.4 % (0-5); LYMPHOCYTES 27.2 % (15-50); MCH 30.5 pg (26.0-34.0); MCHC 33.8 g/dL (31.0-37.0); MCV 90.3 fL (80.0-100.0); MEAN PLATELET VOLUME 10.6 fL (7.4-10.4); MONOCYTES 13.1 % (2-11); NEUTROPHILS 58.4 % (40-80); PLATELET COUNT 246 10x3/uL (130-400); RBC 4.03 10x6/uL (4.20-6.10); RDW 13.2 % (11.5-14.5); WBC 13.4 10x3/uL (4.8-10.8)
[2018-08-07 07:31] LABS: IMMUNOGLOBULIN E 5 IU/mL (0-100)
[2018-08-07 07:33] VITALS: BP 179/79
[2018-08-07] MEDS ORDERED: ALBUTEROL2.5 MG/3 M INH (10:50)
[2018-08-07] MEDS ORDERED: OMNICEF300 MG PO (10:50)
[2018-08-07] MEDS ORDERED: MUCINEX DM ER1 EAC1 PO (10:51)
[2018-08-07] MEDS ORDERED: BENZONATATE200 MG PO (10:51)
[2018-08-07] MEDS ORDERED: SINGULAIR10 MG PO (10:51)
[2018-08-07] MEDS ORDERED: PREDNISONE20 MG PO (10:52)
[2018-08-07] MEDS ORDERED: FLUTICASONE PRO16 GM NASAL (10:52)
[2018-08-07] MEDS ORDERED: BREO ELLIPTA 21 EACH INH (10:54)
[2018-08-07] MEDS ORDERED: IPRAT-ALBUT 0.5-3 ML UPD (11:30)
== END 2018-08-07 13:27 | disposition home or self-care (01) | DRG 177 ==
LOC: D.ER 05:41 → D.M2 08:27 → D.EDHOLD 08:27 → D.ICU 14:36 → D.M2 08-04 22:20
PROVIDERS: Family Medicine; Internal Medicine Nephrology; Internal Medicine Pulmonary Disease
DX: J15.1 Pneumonia due to Pseudomonas (principal); J96.01 Acute respiratory failure with hypoxia; J44.1 Chronic obstructive pulmonary disease with (acute) exacerbation; J98.11 Atelectasis; E87.1 Hypo-osmolality and hyponatremia; F17.213 Nicotine dependence, cigarettes, with withdrawal; J44.0 Chronic obstructive pulmonary disease with (acute) lower respiratory infection; I10 Essential (primary) hypertension; E78.5 Hyperlipidemia, unspecified; N40.0 Benign prostatic hyperplasia without lower urinary tract symptoms; D64.9 Anemia, unspecified; E83.42 Hypomagnesemia; K76.0 Fatty (change of) liver, not elsewhere classified; I25.10 Atherosclerotic heart disease of native coronary artery without angina pectoris; J30.9 Allergic rhinitis, unspecified; C32.9 Malignant neoplasm of larynx, unspecified

== ENCOUNTER → 2018-08-11 09:54 | Outpatient (CLI) | payer MEDICARE ==
[2018-08-04 09:14] VITALS: BMI 39.0
[~2018-08-11 09:54] MED LIST changes: +ALBUTEROL2.5 MG/3 M INH; +BENZONATATE200 MG PO; +BREO ELLIPTA 21 EACH INH; +DOXYCYCLINE HY100 M2 PO; +FLUTICASONE PRO16 GM NASAL; +IPRAT-ALBUT 0.5-3 ML UPD; +MUCINEX DM ER1 EAC1 PO; +OMNICEF300 MG PO; +PREDNISONE10 MG; +PREDNISONE10 MG PO; +PREDNISONE20 MG PO; +SINGULAIR10 MG PO
== END | disposition home or self-care (01) ==
LOC: D.RAD 09:54
DX: R06.02 Shortness of breath (principal)

== ENCOUNTER 2018-08-26 07:02 | Inpatient (IN) | payer MEDICARE ==
[2018-08-26] VITALS (10 sets, daily range): BP systolic 140–174; BP diastolic 75–109
[~2018-08-26] VITALS: Ht 175.3 cm; Wt 113.4 kg
--- NOTE | ~2018-08-26 | MORECARE ---
CASE MANAGEMENT DISCHARGE SUMMARY PATIENT: ANA LAURA MALAVE UNIT: [id number] ADM DATE: 08/26/18 AGE: 72 : [birth year] SEX: M ROOM/BED: D.2231 AUTHOR: ANGELA GARCIA PHYSICIAN: REFERRING PHYSICIAN: AMITA RICHARD MD DATE OF SERVICE: 08/31/18 Discharge Plan Patient Name: ANA LAURA MALAVE Facility: [facility]:[place] : 1945 Planned Disposition: Home Anticipated Discharge Date: Discharge Date: Expected LOS: Initial Reviewer: [email or web address] Initial Review Date: 08/28/2018 Generated: 08/31/18 12:35 pm Comments DCP- Discharge Planning Updated by [email or web address]: Brie Arvizu on 08/31/18 10:[address] Patient Name: ANA LAURA MALAVE Encounter No: [id number] : 1945 Primary Insurance: MEDICARE A & B Anticipated DC Date: Planned Disposition: Home External Planned Provider: : DCP follow-up note: Patient and family in agreement with discharge plan. Son is in room to drive him home. He declines home health needs or additional DME. No changes to plan. Case management will follow and assist as needed. Brie Arvizu DCP- Discharge Planning Updated by [id number]: Brie Arvizu on 08/28/18 3:[address] Patient Name: ANA LAURA MALAVE Admission Status: ER Accout number: [id number] Admission Date: 08-26-2018 : 1945 Admission Diagnosis: Attending: AMITA RICHARD Current LOS: 2 Anticipated DC Date: Planned Disposition: Home Primary Insurance: MEDICARE A & B Discharge Planning Comments: CM met with patient, he is alone in the room. States he lives with his . States he has his at [facility] while he is at the hospital. States his son, Tenzin, will take him home on discharge. States he is independent with all ADL's and IADL's. He does have a walker and wheelchair when needed. He has oxygen, portable oxygen and nebulizer from [facility]. States he is breathing much better since having surgery today. Declines Home health needs. States his discharge plan is to return home. No needs identified at this time. CM will continue to follow and assist with discharge planning/needs. Thread Singer: Brie Luh DCPIA - Discharge Planning Initial Assessment Updated by [email or web address]: Brie Luh on 08/28/18 4:32 pm * Is the patient Alert and Oriented? Yes * How many steps to enter\exit or inside your home? 2-3/0 * PCP Dr. Hannon * [facility] * Preadmission Environment Home with Family * ADLs Partial Dependent * Partial ADLs (Assistance needed) Ambulation * Equipment Bedside Commode Nebulizer Other Oxygen Shower Chair Walker Wheelchair * List name and contact numbers for known caregivers / representatives who currently or will assist patient after discharge: Tenzin - son - unknown number * Verbal permission to speak to the caregivers and representatives has been obtained from the patient. Yes * Community resources currently utilized None * Please name any agencies selected above. DME is [facility] * Additional services required to return to the preadmission environment? No * Can the patient safely return to the preadmission environment? Yes * Has this patient been hospitalized within the prior 30 days at any hospital? Yes Coverage Notice Reviewer: [id number] - Brie Arvizu Notice Issued Date-Time: 08/31/2018 11:28 Notice Type: IM Discharge Notice Notice Delivered To: Patient Relationship to Patient: Self Pest Control Service Technician Name: Delivery Method: HAND - Hand Delivered Africa Days: Prior Verbal Notification: Recipient Understood Notice: Yes Recipient Signature: Yes Med Rec Note Co-signed by Attending: Coverage Notice Comment: IMM explained, signed, copy given, original placed in MR Last DP export: 08/28/18 3:46 Patient Name: ANA LAURA MALAVE Page [id number] at 1135 All edits/amendments must be made on the electronic document DICTATION DATE: 08/31/18 1135 LABORATORY ANIMAL CARETAKER: DUGLAS 08/31/18 1135 RPT#: [id number] [place] DATE: STATUS: ADM IN [facility] [address] [place] [address] END OF REPORT
--- NOTE | ~2018-08-26 | MORECARE ---
CASE MANAGEMENT DISCHARGE SUMMARY PATIENT: ANA LAURA MALAVE UNIT: [id number] ADM DATE: 08/26/18 AGE: 72 : [birth year] SEX: M ROOM/BED: D.2231 AUTHOR: JOSEDOC PHYSICIAN: REFERRING PHYSICIAN: AMITA RICHARD MD DATE OF SERVICE: 09/01/18 Discharge Plan Patient Name: ANA LAURA MALAVE Facility: [facility]:[place] : 1945 Planned Disposition: Home Anticipated Discharge Date: Discharge Date: 08/31/2018 Expected LOS: 0 Initial Reviewer: [id number] Initial Review Date: 08/28/2018 Generated: 09/01/18 10:41 am Comments DCP- Discharge Planning Updated by [id number]: Brie Arvizu on 08/31/18 10:[address] Patient Name: ANA LAURA MALAVE Encounter No: [id number] : 1945 Primary Insurance: MEDICARE A & B Anticipated DC Date: Planned Disposition: Home External Planned Provider: : DCP follow-up note: Patient and family in agreement with discharge plan. Son is in room to drive him home. He declines home health needs or additional DME. No changes to plan. Case management will follow and assist as needed. Brie Arvizu DCP- Discharge Planning Updated by [id number]: Brie Arvizu on 08/28/18 3:[address] Patient Name: ANA LAURA MALAVE Admission Status: ER Accout number: [id number] Admission Date: 08-26-2018 : 1945 Admission Diagnosis: Attending: AMITA RICHARD Current LOS: 2 Anticipated DC Date: Planned Disposition: Home Primary Insurance: MEDICARE A & B Discharge Planning Comments: CM met with patient, he is alone in the room. States he lives with his . States he has his at [facility] while he is at the hospital. States his son, Tenzin, will take him home on discharge. States he is independent with all ADL's and IADL's. He does have a walker and wheelchair when needed. He has oxygen, portable oxygen and nebulizer from [employer]. States he is breathing much better since having surgery today. Declines Home health needs. States his discharge plan is to return home. No needs identified at this time. CM will continue to follow and assist with discharge planning/needs. Buckle Coverer: Brie Arvizu DCPIA - Discharge Planning Initial Assessment Updated by [email or web address]: Brie Arvizu on 08/28/18 4:32 pm * Is the patient Alert and Oriented? Yes * How many steps to enter\exit or inside your home? 2-3/0 * PCP Dr. Hannon * [facility] * Preadmission Environment Home with Family * ADLs Partial Dependent * Partial ADLs (Assistance needed) Ambulation * Equipment Bedside Commode Nebulizer Other Oxygen Shower Chair Walker Wheelchair * List name and contact numbers for known caregivers / representatives who currently or will assist patient after discharge: Tenzin - son - unknown number * Verbal permission to speak to the caregivers and representatives has been obtained from the patient. Yes * Community resources currently utilized None * Please name any agencies selected above. DME is [facility] * Additional services required to return to the preadmission environment? No * Can the patient safely return to the preadmission environment? Yes * Has this patient been hospitalized within the prior 30 days at any hospital? Yes Coverage Notice Reviewer: [id number] - Brie Orriker Notice Issued Date-Time: 08/31/2018 11:28 Notice Type: IM Discharge Notice Notice Delivered To: Patient Relationship to Patient: Self Ragman Name: Delivery Method: HAND - Hand Delivered Africa Days: Prior Verbal Notification: Recipient Understood Notice: Yes Recipient Signature: Yes Med Rec Note Co-signed by Attending: Coverage Notice Comment: IMM explained, signed, copy given, original placed in MR Last DP export: 08/31/18 10:35 a Patient Name: ANA LAURA MALAVE Page 86024 at 0941 All edits/amendments must be made on the electronic document DICTATION DATE: 09/01/18940 OTOLARYNGOLOGY REP: DUGLAS 09/01/18940 RPT#: [id number] DC DATE:08/31/18 STATUS: DIS IN [facility] [address] [place] [address] END OF REPORT
--- NOTE | ~2018-08-26 | MORECARE ---
CASE MANAGEMENT DISCHARGE SUMMARY PATIENT: ANA LAURA MALAVE UNIT: [id number] ADM DATE: 08/26/18 AGE: 72 : [birth year] SEX: M ROOM/BED: D.2231 AUTHOR: JOSE,DOC PHYSICIAN: REFERRING PHYSICIAN: AMITA RICHARD MD DATE OF SERVICE: 08/28/18 Discharge Plan Patient Name: ANA LAURA MALAVE Facility: [facility]:[place] : 1945 Planned Disposition: Home Anticipated Discharge Date: Discharge Date: Expected LOS: Initial Reviewer: [email or web address] Initial Review Date: 08/28/2018 Generated: 08/28/18 5:46 pm Comments DCP- Discharge Planning Updated by [email or web address]: Brie Arvizu on 08/28/18 3:[address] Patient Name: ANA LAURA MALAVE Admission Status: ER Accout number: [id number] Admission Date: 08-26-2018 : 1945 Admission Diagnosis: Attending: AMITA RICHARD Current LOS: 2 Anticipated DC Date: Planned Disposition: Home Primary Insurance: MEDICARE A & B Discharge Planning Comments: CM met with patient, he is alone in the room. States he lives with his . States he has his at [facility] while he is at the hospital. States his son, Tenzin, will take him home on discharge. States he is independent with all ADL's and IADL's. He does have a walker and wheelchair when needed. He has oxygen, portable oxygen and nebulizer from [facility]. States he is breathing much better since having surgery today. Declines Home health needs. States his discharge plan is to return home. No needs identified at this time. CM will continue to follow and assist with discharge planning/needs. Nut Blanker Operator: Brie Arvizu DCPIA - Discharge Planning Initial Assessment Updated by [email or web address]: Brie Arvizu on 08/28/18 4:32 pm * Is the patient Alert and Oriented? Yes * How many steps to enter\exit or inside your home? 2-3/0 * PCP Dr. Hannon * [facility] * Preadmission Environment Home with Family * ADLs Partial Dependent * Partial ADLs (Assistance needed) Ambulation * Equipment Bedside Commode Nebulizer Other Oxygen Shower Chair Walker Wheelchair * List name and contact numbers for known caregivers / representatives who currently or will assist patient after discharge: Tenzin - son - unknown number * Verbal permission to speak to the caregivers and representatives has been obtained from the patient. Yes * Community resources currently utilized None * Please name any agencies selected above. DME is [facility] * Additional services required to return to the preadmission environment? No * Can the patient safely return to the preadmission environment? Yes * Has this patient been hospitalized within the prior 30 days at any hospital? Yes Last DP export: 08/28/18 3:34 Patient Name: ANA LAURA MALAVE Page 26080 at 1646 All edits/amendments must be made on the electronic document DICTATION DATE: 08/28/181644 FISCAL SERVICES MANAGER: DUGLAS 08/28/181644 RPT#: [id number] DC DATE: STATUS: ADM IN [facility] [address] [place] [address] END OF REPORT
--- NOTE | ~2018-08-26 | OP ---
PATIENT NAME: ANA LAURA MALAVE MEDICAL RECORD: [id number] :[birth year] LOCATION:D.MS [id number] ADMISSION DATE:08/26/18 SURGEON: FRANK VALDEZ MD DATE OF OPERATION: 08/28/2018 PREOPERATIVE DIAGNOSES: Laryngeal lesion, stridor, hoarseness. POSTOPERATIVE DIAGNOSES: Laryngeal lesion, stridor, hoarseness. PROCEDURE: Direct laryngoscopy, biopsy and debulking of laryngeal lesion. SURGEON: Frank Valdez MD ANESTHESIA: General orotracheal. BLOOD LOSS: 2 cc. SPECIMENS: Multiple biopsies from the right larynx, frozen section diagnosis, squamous cell carcinoma. COMPLICATIONS: None. DISPOSITION: Recovery stable. PROCEDURE NOTE: The patient was brought to the operating room and placed in a supine position, sedated and intubated by anesthesia with a 5-0 cuffed tube. Table was turned 90 degrees. Head drapes applied. He was positioned for endoscopy. He had lower teeth, but he was edentulous. Superior plastic tooth guard was placed and a Kleinsasser J laryngoscope was used to examine the hypopharynx and larynx. Epiglottis is normal. AE folds are normal. The postcricoid area and posterior pharynx was all normal. Looking at the larynx, the left cord was normal. The right cord had a bulky lesion, which extended into the posterior glottis, thickened and granular in appearance. Biopsies were taken. This was positive for squamous cell carcinoma. Basically debulked this down to the true cord itself and then took some biopsies out of the posterior glottis as well and there was some subglottic extension and that is mainly what was affecting his airway on the right side from about the 2 o'clock to the 7 o'clock position in the subglottis debulked that and then could easily see the cuff of the tube and that open up his airway very nicely to a normal anatomic size. There really was not much bleeding, but I placed an Afrin pledget for a while prior to extubating him. I extubated him and transferred to recovery still hoarse, but breathing very easily and quietly. The stridor resolved. No complications. TRANSINT:[id number] Voice Confirmation ID: [id number] DOCUMENT ID: [id number] FRANK VALDEZ MD at 1818 CC: [id number] DICTATION DATE: 08/28/18 1207 CENTRAL OFFICE EQUIPMENT INSTALLER: 08/28/18 1229 DIS IN 08/31/18 [place] [id number] [place] [id number]
--- NOTE | ~2018-08-26 | CN ---
PATIENT NAME:ANA LAURA BURT MEDICAL RECORD: [id number] : 49 LOCATION:[facility] ADMIT DATE: 08/26/18 ACCOUNT: [id number] CONSULTING PHYSICIAN: ASIM DEL CASTILLO MD REFERRING PHYSICIAN: AMITA RICHARD MD DATE OF CONSULTATION: 08/26/2018 CONSULT REQUESTING PHYSICIAN: Amita Richard MD REASON FOR CONSULTATION: BiPAP, acute exacerbation of COPD. HISTORY OF PRESENT ILLNESS: Mr. Burt is a 72-year-old gentleman. He was hospitalized in the first week of this month for COPD flare up. He was also having some stridor and hoarseness. 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 He is scheduled for surgery by Dr. Hernandez, but the patient came in yesterday to the ER for worsening shortness of breath and he required BiPAP. Denies any fever or any chill. He is coughing with very little sputum. He still continued to smoke; but for the last couple of weeks, he cannot smoke because of the shortness of breath. REVIEW OF THE SYSTEMS: As in history of present illness. PAST MEDICAL HISTORY: 1. COPD. 2. Hypertension. 3. Vocal cord lesion. 4. Hyperlipidemia. 5. BPH. ALLERGY: No known drug allergy. MEDICATIONS: [facility] was reviewed. PERSONAL AND SOCIAL HISTORY: The patient still continues to smoke. He is nondrinker. FAMILY HISTORY: Significant for hypertension. PHYSICAL EXAMINATION: GENERAL: Now, the patient is sitting in bed, wearing the BiPAP. He is not in acute distress. VITAL SIGNS: The blood pressure is 140/85, pulse is 81, respiration is 16, temperature is 97, and SpO2 is 96% on BiPAP. HEENT: Conjunctivae are pink. Sclerae are not icteric. NECK: Neck is supple. No JVD. There is audible stridor. CHEST: The chest excursion is minimal on both sides. There is wheeze on forceful expiration. HEART: Rhythm regular. Normal sound. No murmur. ABDOMEN: Abdomen is soft. Bowel sounds present. No hepatosplenomegaly. RECTAL: Deferred. EXTREMITIES: No cyanosis. No clubbing. There is no pedal edema. CENTRAL NERVOUS SYSTEM: The patient is awake and alert. There is no obvious cranial nerve abnormality. The gait was not tested. LABORATORY DATA: CBC; WBC 12.2, hemoglobin 13.1, hematocrit 37.3, and platelet CONSULT REPORT [id number] ANA LAURA BURT count is 240. Chemistry; sodium 122, potassium 4.1, bicarb is 30.3, BUN is 14, and creatinine is 0.6. DIAGNOSTIC DATA: Chest radiograph; there is hyperinflation. There is no acute infiltrate. IMPRESSION: 1. Gopqz-nh-jhsbjlw hypoxic respiratory failure. 2. Acute exacerbation of COPD. 3. Tracheobronchitis. 4. Laryngeal mass with stridor and hoarseness. 5. Tobacco dependence syndrome. 6. Leukocytosis. 7. Hyponatremia. RECOMMENDATION: 1. Continue the BiPAP. We will keep it out when the patient is eating. 2. Start on racemic nebulizer p.r.n. 3. Start on albuterol/ipratropium nebulizer. 4. Brovana and budesonide nebulizer. 5. Start on empiric doxycycline. 6. Methylprednisolone IV. 7. The patient is followed by Dr. Hernandez. Follow up labs and chest radiograph. Dr. Richard, thank you for involving me in the care of Mr. Burt. TRANSINT:[id number] Voice Confirmation ID: [id number] DOCUMENT ID: [id number] ASIM DEL CASTILLO MD at 1711 CC: [id number] DICTATION DATE: 08/26/18 1600 [employer] SENIOR SPECIALIST: 08/26/18 1854 ADM IN [facility] [address] [place] [address]
--- NOTE | ~2018-08-26 | MORECARE ---
CASE MANAGEMENT DISCHARGE SUMMARY PATIENT: ANA LAURA MALAVE KETAN UNIT: [id number] ADM DATE: 08/26/18 AGE: 72 : [birth year] SEX: M ROOM/BED: D.2231 AUTHOR: ANGELA GARCIA PHYSICIAN: REFERRING PHYSICIAN: AMITA RICHARD MD DATE OF SERVICE: 08/28/18 Discharge Plan Patient Name: ANA LAURA MALAVE [facility] [facility] 1945 Planned Disposition: Home Anticipated Discharge Date: Discharge Date: Expected LOS: Initial Reviewer: [email or web address] Initial Review Date: 08/28/2018 Generated: 08/28/18 5:34 pm DCPIA - Discharge Planning Initial Assessment Updated by [email or web address]: Brie Arvizu on 08/28/18 4:32 pm * Is the patient Alert and Oriented? Yes * How many steps to enter\exit or inside your home? 2-3/0 * PCP Dr. Hannon * Pharmacy [facility] * Preadmission Environment Home with Family * ADLs Partial Dependent * Partial ADLs (Assistance needed) Ambulation * Equipment Bedside Commode Nebulizer Other Oxygen Shower Chair Walker Wheelchair * List name and contact numbers for known caregivers / representatives who currently or will assist patient after discharge: Tenzin - son - unknown number * Verbal permission to speak to the caregivers and representatives has been obtained from the patient. Yes * Community resources currently utilized None * Please name any agencies selected above. DME is [facility] * Additional services required to return to the preadmission environment? No * Can the patient safely return to the preadmission environment? Yes * Has this patient been hospitalized within the prior 30 days at any hospital? Yes Patient Name: ANA LAURA MALAVE Page [phone] at [id number] All edits/amendments must be made on the electronic document DICTATION DATE: 08/28/181633 PACKER INSULATION: DUGLAS 08/28/181633 RPT#: [id number] DC DATE: STATUS: ADM IN [facility] [address] [place] [address] END OF REPORT
[~2018-08-26 07:02] MED LIST changes: -DOXYCYCLINE HY100 M2 PO; -PREDNISONE10 MG; -PREDNISONE10 MG PO
[2018-08-26 07:44] LABS: BASOPHILS 0.1 % (0-2); EOSINOPHILS 1.3 % (0-7); HEMATOCRIT 37.3 % (42.0-54.0); HEMOGLOBIN 13.1 g/dL (13.5-17.5); IMMATURE GRANULOCYTES 1.1 % (0-5); LYMPHOCYTES 25.6 % (15-50); MCHC 35.1 g/dL (31.0-37.0); MCV 88.2 fL (80.0-100.0); MEAN PLATELET VOLUME 9.7 fL (7.4-10.4); MONOCYTES 9.5 % (2-11); NEUTROPHILS 62.4 % (40-80); PLATELET COUNT 240 10x3/uL (130-400); RBC 4.23 10x6/uL (4.20-6.10); RDW 13.1 % (11.5-14.5); WBC 12.2 10x3/uL (4.8-10.8)
[2018-08-26 07:57] LABS: APTT 24.7 SECONDS (22.8-39.4); INR 1.05 (0.85-1.17); PROTIME 13.2 SECONDS (11.6-15.0)
[2018-08-26 07:58] LABS: ALBUMIN 3.7 g/dL (3.4-5.0); ALKALINE PHOSPHATASE 70 U/L (46-116); ALT (SGPT) 63 U/L (10-68); BILIRUBIN - TOTAL 0.63 mg/dL (0.2-1.3); CALC OSMOLALITY 248 mosm/kg (275-300); CALCIUM 8.8 mg/dL (8.5-10.1); CARBON DIOXIDE 30.3 mmol/L (21.0-32.0); CHLORIDE - SERUM 87 mmol/L (98-107); CREATININE - SERUM 0.6 mg/dL (0.6-1.3); GLUCOSE 135 mg/dL (74-106); POTASSIUM - SERUM 4.1 mmol/L (3.5-5.1); PROTEIN - SERUM 7.1 g/dL (6.4-8.2); SODIUM 122 mmol/L (136-145); UREA NITROGEN 14 mg/dL (7-18); eGFR NON AFRICAN AMERICAN > 90 mL/min (90-120)
[2018-08-26 08:16] LABS: CKMB 10.4 U/L (0.0-3.6); CREATINE KINASE 182 UL (21-232); PRO BNP 60 pg/mL (0-125); TROPONIN-I 0.026 ng/mL (0.000-0.060)
[2018-08-27] VITALS (7 sets, daily range): BP systolic 140–163; BP diastolic 69–85; Ht 175.3 cm; Wt 113.4 kg
[2018-08-27 04:58] LABS: BASOPHILS 0 % (0-2); EOSINOPHILS 0 % (0-7); HEMOGLOBIN 12.9 g/dL (13.5-17.5); IMMATURE GRANULOCYTES 0.5 % (0-5); MCH 30.4 pg (26.0-34.0); MCHC 34.9 g/dL (31.0-37.0); MCV 87.3 fL (80.0-100.0); MONOCYTES 3.4 % (2-11); NEUTROPHILS 89.1 % (40-80); PLATELET COUNT 264 10x3/uL (130-400); RBC 4.24 10x6/uL (4.20-6.10); RDW 13.1 % (11.5-14.5); WBC 14.6 10x3/uL (4.8-10.8)
[2018-08-27 05:09] LABS: CALCIUM 9.4 mg/dL (8.5-10.1); CARBON DIOXIDE 32.4 mmol/L (21.0-32.0); CHLORIDE - SERUM 86 mmol/L (98-107); POTASSIUM - SERUM 4.2 mmol/L (3.5-5.1); SODIUM 127 mmol/L (136-145); UREA NITROGEN 15 mg/dL (7-18)
[2018-08-27 05:17] LABS: CALC OSMOLALITY 260 mosm/kg (275-300); CREATININE - SERUM 0.8 mg/dL (0.6-1.3); GLUCOSE 187 mg/dL (74-106); eGFR NON AFRICAN AMERICAN > 90 mL/min (90-120)
[2018-08-28 05:03] LABS: BASOPHILS 0.1 % (0-2); EOSINOPHILS 0 % (0-7); HEMATOCRIT 35.2 % (42.0-54.0); HEMOGLOBIN 12.1 g/dL (13.5-17.5); IMMATURE GRANULOCYTES 0.5 % (0-5); LYMPHOCYTES 4.9 % (15-50); MCH 30.3 pg (26.0-34.0); MCHC 34.4 g/dL (31.0-37.0); MEAN PLATELET VOLUME 9.7 fL (7.4-10.4); NEUTROPHILS 89.5 % (40-80); PLATELET COUNT 249 10x3/uL (130-400)
[2018-08-28 05:07] LABS: WBC 18.9 10x3/uL (4.8-10.8)
[2018-08-28 05:15] LABS: CALC OSMOLALITY 268 mosm/kg (275-300); CALCIUM 9.1 mg/dL (8.5-10.1); CHLORIDE - SERUM 93 mmol/L (98-107); CREATININE - SERUM 0.9 mg/dL (0.6-1.3); GLUCOSE 201 mg/dL (74-106); POTASSIUM - SERUM 4.3 mmol/L (3.5-5.1); SODIUM 129 mmol/L (136-145); eGFR NON AFRICAN AMERICAN 89 mL/min (90-120)
[2018-08-28 05:16] LABS: UREA NITROGEN 23 mg/dL (7-18)
[2018-08-28 05:48] VITALS: BP 166/69
[2018-08-28 08:17] VITALS: BP 186/90
[2018-08-28 12:33] VITALS: BP 125/62
[2018-08-28 16:14] VITALS: BP 146/60
[2018-08-28 20:20] VITALS: BP 113/68
[2018-08-29 01:15] VITALS: BP 136/54
[2018-08-29 05:19] VITALS: BP 146/61
[2018-08-29 06:59] LABS: CALC OSMOLALITY 268 mosm/kg (275-300); CALCIUM 9.2 mg/dL (8.5-10.1); CARBON DIOXIDE 31.4 mmol/L (21.0-32.0); CHLORIDE - SERUM 93 mmol/L (98-107); CREATININE - SERUM 0.8 mg/dL (0.6-1.3); GLUCOSE 181 mg/dL (74-106); POTASSIUM - SERUM 4.4 mmol/L (3.5-5.1); SODIUM 130 mmol/L (136-145); UREA NITROGEN 22 mg/dL (7-18); eGFR NON AFRICAN AMERICAN > 90 mL/min (90-120)
[2018-08-29 07:00] LABS: BASOPHILS 0.1 % (0-2); EOSINOPHILS 0 % (0-7); HEMATOCRIT 35.4 % (42.0-54.0); HEMOGLOBIN 11.9 g/dL (13.5-17.5); IMMATURE GRANULOCYTES 0.4 % (0-5); LYMPHOCYTES 5.9 % (15-50); MCH 30.1 pg (26.0-34.0); MCHC 33.6 g/dL (31.0-37.0); MCV 89.4 fL (80.0-100.0); MEAN PLATELET VOLUME 10.1 fL (7.4-10.4); MONOCYTES 5.4 % (2-11); NEUTROPHILS 88.2 % (40-80); PLATELET COUNT 252 10x3/uL (130-400); RBC 3.96 10x6/uL (4.20-6.10); RDW 13.3 % (11.5-14.5)
[2018-08-29 09:05] VITALS: BP 142/66
[2018-08-29 13:33] VITALS: BP 150/64
[2018-08-29 16:27] VITALS: BP 139/88
[2018-08-29 21:08] VITALS: BP 100/58
[2018-08-30 05:03] VITALS: BP 165/57
[2018-08-30 05:37] LABS: BASOPHILS 0.1 % (0-2); EOSINOPHILS 0.1 % (0-7); HEMATOCRIT 34.3 % (42.0-54.0); HEMOGLOBIN 11.6 g/dL (13.5-17.5); IMMATURE GRANULOCYTES 0.7 % (0-5); LYMPHOCYTES 14.5 % (15-50); MCHC 33.8 g/dL (31.0-37.0); MCV 88.6 fL (80.0-100.0); MEAN PLATELET VOLUME 9.7 fL (7.4-10.4); MONOCYTES 10.8 % (2-11); NEUTROPHILS 73.8 % (40-80); PLATELET COUNT 233 10x3/uL (130-400); RBC 3.87 10x6/uL (4.20-6.10); RDW 13.4 % (11.5-14.5); WBC 13.3 10x3/uL (4.8-10.8)
[2018-08-30 06:02] LABS: CALC OSMOLALITY 269 mosm/kg (275-300); CALCIUM 8.9 mg/dL (8.5-10.1); CHLORIDE - SERUM 92 mmol/L (98-107); CREATININE - SERUM 0.9 mg/dL (0.6-1.3); GLUCOSE 181 mg/dL (74-106); POTASSIUM - SERUM 3.8 mmol/L (3.5-5.1); SODIUM 131 mmol/L (136-145); UREA NITROGEN 19 mg/dL (7-18); eGFR NON AFRICAN AMERICAN 89 mL/min (90-120)
[2018-08-30 08:43] VITALS: BP 146/67
[2018-08-30 12:38] VITALS: BP 160/82
[2018-08-30 16:50] VITALS: BP 178/91
[2018-08-30 20:47] VITALS: BP 171/87
[2018-08-31 01:01] VITALS: BP 164/74
[2018-08-31 05:01] VITALS: BP 162/69
[2018-08-31 05:25] LABS: BASOPHILS 0.1 % (0-2); EOSINOPHILS 0.7 % (0-7); HEMATOCRIT 35.8 % (42.0-54.0); HEMOGLOBIN 12.3 g/dL (13.5-17.5); IMMATURE GRANULOCYTES 1.2 % (0-5); LYMPHOCYTES 27.4 % (15-50); MCH 30.4 pg (26.0-34.0); MCHC 34.4 g/dL (31.0-37.0); MCV 88.6 fL (80.0-100.0); MEAN PLATELET VOLUME 9.7 fL (7.4-10.4); NEUTROPHILS 60.6 % (40-80); PLATELET COUNT 240 10x3/uL (130-400); RBC 4.04 10x6/uL (4.20-6.10); RDW 13.4 % (11.5-14.5); WBC 12.5 10x3/uL (4.8-10.8)
[2018-08-31 05:36] LABS: CALC OSMOLALITY 271 mosm/kg (275-300); CALCIUM 8.7 mg/dL (8.5-10.1); CARBON DIOXIDE 30.6 mmol/L (21.0-32.0); CHLORIDE - SERUM 94 mmol/L (98-107); CREATININE - SERUM 0.9 mg/dL (0.6-1.3); GLUCOSE 147 mg/dL (74-106); POTASSIUM - SERUM 3.9 mmol/L (3.5-5.1); SODIUM 134 mmol/L (136-145); UREA NITROGEN 15 mg/dL (7-18); eGFR NON AFRICAN AMERICAN 89 mL/min (90-120)
[2018-08-31 08:26] VITALS: BP 155/79
[2018-08-31] MEDS ORDERED: DOXYCYCLINE HY100 M2 PO ×2 (11:17→11:33)
[2018-08-31] MEDS ORDERED: PREDNISONE10 MG (11:18)
[2018-08-31] MEDS ORDERED: PREDNISONE10 MG PO (11:33)
== END 2018-08-31 12:45 | disposition home or self-care (01) | DRG 133 ==
LOC: D.ER 07:02 → D.EDHOLD 07:53 → D.MS 07:53
PROVIDERS: Emergency Medicine; Internal Medicine Pulmonary Disease; Otolaryngology
PROC: 0CBT8ZZ Excision of Right Vocal Cord, Via Natural or Artificial Opening Endoscopic (ICD-10-PCS; principal; 2018-08-28 09:45)
DX: C32.0 Malignant neoplasm of glottis (principal); J96.21 Acute and chronic respiratory failure with hypoxia; J44.1 Chronic obstructive pulmonary disease with (acute) exacerbation; J40 Bronchitis, not specified as acute or chronic; I10 Essential (primary) hypertension; E66.9 Obesity, unspecified; Z68.37 Body mass index [BMI] 37.0-37.9, adult